=== PATIENT | male | born 1955 ===

== ENCOUNTER 2020-10-10 09:00 | Day surgery (SDC) | payer OTHER ==
[~2020-10-10 09:00] MED LIST: GABAPENTIN300 M2 PO; NORVASC2.5 M1 PO; SYNTHROID75 MCG PO
== END 2020-10-10 20:00 | disposition home or self-care (01) ==
LOC: CIR.AMB 09:00
PROVIDERS: ATTEND Orthopaedic Surgery Sports Medicine
DX: S83.281A Other tear of lateral meniscus, current injury, right knee, initial encounter (principal); M94.261 Chondromalacia, right knee; M67.51 Plica syndrome, right knee; Z20.828 Contact with and (suspected) exposure to other viral communicable diseases